=== PATIENT | female | born 1965 | race Caucasian/White ===

== ENCOUNTER → 2019-01-10 | Outpatient (CLI) | payer OTHER ==
--- NOTE | 2019-01-10 13:59 | RAD ---
MR#: [id number] Date of Study: 01/10/2019 Ordering Physician: JOSEPH CR, Referring Physician: JOSEPHINE SELLERS Tech: MORALES Lara, ARRT (R) (N) APPROVED REPORT Test Type: Exercise Stress Nurse/Tech: Indigo Cristobal RN Test Indications: elevated calcium Cardiac History: Hypertension, current smoker, asthma Medications: See Electronic Medical Record Medical History: See Electronic Medical Record Resting ECG: SR Resting Heart Rate: 61 bpm Resting Blood Pressure: 113/69mmHg Pretest Chest Pain: None Nurse/Tech Notes S1,S2; Clear LS Consent: The procedure was explained to the patient in lay terms. Informed consent was witnessed. Rafael eout was entered into [employer]. History and Stress Test performed by Indigo Cristobal RN Stress Symptoms Syncope POST EXERCISE Reason for Termination: Reached target heart rate Target HR: 140 Max HR: 155 bpm Exercise duration: 6:05 min:sec, 2 Stage Max Blood Pressure: 139/57mmHg Chest Pain: No. Arrhythmia: No. ST Change: No. INTERPRETATION Stress EKG Conclusion: Baseline EKG showed sinus rhythm. No ischemic changes at peak stress. No arr hythmias. Imaging Protocol IMAGE PROTOCOL: Rest Tc-99m/stress Tc-99m 1 day Rest: Stress: Viability: Radiopharm.Tc99m NaaelmoxsQn51t Sestamibi Ubne15gKd 33mCi Img Date 01/10/2019 01/10/2019 Inj-Img [id number]. 60min. Rest Admin Site:IV - Left AntecubitalAdministrator:RT Hai (R)(N) Stress Admin Site: IV - Left AntecubitalAdministrator: RT Hai (R)(N) STRESS DATA End Diast. Vol.97.0mlAv. Heart Rate77.0bpm End Syst. Vol.13.0mlCO Index BSA0.0L/min Myocardial Bdmy401.0gEject. Qvdeciko80.0% Stress Rates Pk. Fill Rate3.20EDV/secLVtime Pk. Fill 160.60msec Pk. Empty Rate4.22ESV/secLVtime Pk. Kxeio589.66msec 1/3 Pk. Fill1.74EDV/sec Stress Scores Regional WT0.00Summed WT0.00 Regional WM0.00Summed WM0.00 Study quality was good. Left Ventricular size was Normal at Rest and Stress. Lung uptake was . Left Ventricular ejection fraction is 87%. The rest and stress images show normal perfusion, normal contraction and thickening. LV Perf. Quant 17 Seg. SSS1.00 17 Seg. SRS19.00 17 Seg. SDS0.00 Stress Defect Extent (% LAD)0.00Rest Defect Extent (% LAD)49.40Rev. Defect Extent (% LAD)0.00 Stress Defect Extent (% LCX) 0.00Rest Defect Extent (% LCX)43.80Rev. Defect Extent (% LCX)0.00 Stress Defect Extent (% RCA)0.00Rest Defect Extent (% RCA)11.10Rev. Defect Extent (% RCA)0.00 Stress Defect Extent (% JEFRY)0.00Rest Defect Extent (% JEFRY)38.70Rev. Defect Extent (% JEFRY)0.00 Conclusion 1. Treadmill exercise cardioisotope stress test did not show any evidence of ischemia or infarct. 2. Normal left ventricular systolic function with ejection fraction calculated at 87%. 3. Low risk for cardiac events. Signed by : Dell Camp, Electronically Approved : 01/10/2019 13:58:33
== END | disposition home or self-care (01) ==
LOC: NM 07:40
PROVIDERS: ATTEND Physician Assistant Medical
DX: I25.10 Atherosclerotic heart disease of native coronary artery without angina pectoris (principal); I10 Essential (primary) hypertension; J45.909 Unspecified asthma, uncomplicated; F17.200 Nicotine dependence, unspecified, uncomplicated; Z82.49 Family history of ischemic heart disease and other diseases of the circulatory system
CPT/HCPCS: 78452; 93017; A9500

== ENCOUNTER → 2020-09-17 | Outpatient (CLI) | payer OTHER ==
--- NOTE | 2020-09-17 21:34 | KCIC ---
Left foot 2 views INDICATION: Left foot pain for one week in the medial aspect of the arch. COMPARISON: No comparisons currently available. FINDINGS: Normal mineralization and alignment. No acute fracture or aggressive bony lesions seen. There is osteophytic spurring of the tarsometatarsal joints primarily involving the first and second digits. Soft tissues are unremarkable. IMPRESSION: Mild left midfoot degenerative changes. No fracture or malalignment. Electronically signed by: Juan M Khoury MD (09/17/2020 9:31 PM) [facility] [place]
== END ==
LOC: KCIC 15:11
PROVIDERS: ATTEND Physician Assistant Medical
DX: M19.072 Primary osteoarthritis, left ankle and foot (principal)
CPT/HCPCS: 73630